=== PATIENT | male | born 1995 | race Caucasian/White ===

== ENCOUNTER 2017-01-10 19:35 | Emergency (ER) | payer OTHER ==
[2017-01-10 19:41] VITALS: RESP 16; TEMP 97.3
--- NOTE | 2017-01-10 20:00 | EDPHY ---
H & P Stated Complaint: throat tightness Time Seen by Provider: 01/10/17 20:00 HPI/ROS: HPI: This is a 21-year-old male who presents with Chief Complaint: Throat tightness Location: Throat Quality: Tightness Duration: Prior to arrival Signs and Symptoms: No difficulty swallowing, no wheezing, no shortness of breath, no chest pain, no cardiac awareness, no radiculopathy Timing: Sudden Severity: Moderate Context: Patient reports he was sitting on the computer participating in a group project when all of a sudden he felt his throat become tight, it was constant and lasted approximately 15-30 minutes. He was still able to talk and swallow without difficulty. Denies any fever/sore throat/chest pain/shortness of breath. He has not had any recent long distance travel. Denies any recreational drug use. Denies anxiety. Denies eating any new foods or any allergies. Denies indigestion or sensitivity to fatty or fried foods. Patient did have a central heat on today. He feels like his throat is dry and has a lump in it but is still able to swallow. The only thing he had to eat prior to arrival was pizza. Modifying Factors: None Comment: ROS: see HPI Constitutional: No fever, no chills, no weight loss Eyes: No blurred vision Respiratory: No shortness of breath, no cough Cardiovascular: No chest pain Gastrointestinal: No nausea, no vomiting, no diarrhea Genitourinary: No dysuria Extremities: No myalgias Neurologic: No weakness, no numbness Skin: No rashes Hematologic: No bruising, no bleeding MEDICAL/SURGICAL/SOCIAL HISTORY: Medical history: Attention deficit hyperactivity disorder, depression Surgical history: Tympanostomy tubes Social history: Student CONSTITUTIONAL: Slightly anxious young adult white male, awake and alert, no obvious distress HEENT: Atraumatic and normocephalic, PERRL, EOMI. Tympanic membranes clear. Oropharynx clear, no exudate and moist pink mucosa. Airway patent. No lymphadenopathy. No meningismus. Cardiovascular: Normal S1/S2, regular rate, regular rhythm, without murmur rub or gallop. PULMONARY/CHEST: Symmetrical and nontender. Clear to auscultation bilaterally. Good air movement. No accessory muscle usage. ABDOMEN: Soft, nondistended, nontender, no rebound, no guarding, no peritoneal signs, no masses or organomegaly. No CVAT. EXTREMITIES: 2/2 pulses, strength 5/5, no deformities, no clubbing, no cyanosis or edema. NEUROLOGICAL: no focal neuro deficits. GCS 15. SKIN: Warm and dry, no erythema. no rash. Good capillary refill. Source: Patient Exam Limitations: No limitations - Personal History Current Tetanus/Diphtheria Vaccine: Yes Current Tetanus Diphtheria and Acellular Pertussis (TDAP): Yes - Medical/Surgical History Hx Asthma: No Hx Chronic Respiratory Disease: No Hx Diabetes: No Hx Cardiac Disease: No Hx Renal Disease: No Hx Cirrhosis: No Hx Alcoholism: No Hx HIV/AIDS: No Hx Splenectomy or Spleen Trauma: No Other PMH: addhd/depression/ear tubes - Social History Smoking Status: Never smoked Constitutional: Initial Vital Signs Temperature (C) 36.3 C 01/10/17 19:38 Heart Rate 99 01/10/17 19:38 Respiratory Rate 16 01/10/17 19:38 Blood Pressure 138/69 H 01/10/17 19:38 O2 Sat (%) 99 01/10/17 19:38 O2 Delivery Mode Room Air Allergies/Adverse Reactions: Penicillins Allergy (Verified 01/10/17 19:41) Home Medications: Medication Instructions Recorded Caffeine 07/03/14 Supplements 07/03/14 Wellbutrin Sr 10/03/15 Medical Decision Making - Diagnostics Imaging Results: Imaging Impressions Chest X-Ray 01/10/17 20:16 Impression: Normal chest x-ray. Procedures: 12 lead EKG: Indication: Throat tightness Rhythm: Normal sinus rhythm [place]: Normal Intervals: Normal QRS: Normal ST segments: Normal INTERPRETATION: Normal EKG The 12 lead EKG was interpreted by myself and with attending. ED Course/Re-evaluation: EKG, labs, chest x-ray obtained Patient given IV Benadryl with complete resolution of symptoms EKG shows no acute ischemic changes No signs of anaphylaxis/airway compromise/acute coronary syndrome/pulmonary embolism/pneumonia Chest x-ray my read shows no acute opacity/effusion/pneumothorax Labs reviewed and show increased BUN and creatinine that is consistent with mild dehydration. Reassessed patient who reports that his throat tightness has since resolved. We discussed his creatinine being 1.4 and he reports that he hardly drink any water today. Per nurse he has drank approximately 4 glasses of ice water while in the ER. Differential Diagnosis: Differential diagnosis includes but is not limited to allergic reaction, pulmonary embolism, atypical chest pain, pharyngitis. - Data Points Laboratory Results: Laboratory Results 01/10/17 20:30 01/10/17 20:30 01/10/17 01/10/17 01/10/17 20:30 20:30 20:30 WBC 5.15 10^3/uL 10^3/uL (3.80-9.50) RBC 5.12 10^6/uL 10^6/uL (4.40-6.38) Hgb 16.5 g/dL g/dL (13.7-17.5) Hct 45.3 % % (40.0-51.0) MCV 88.5 fL fL (81.5-99.8) MCH 32.2 pg pg (27.9-34.1) MCHC 36.4 g/dL g/dL (32.4-36.7) RDW 12.5 % % (11.5-15.2) Plt Count 163 10^3/uL 10^3/uL (150-400) MPV 10.6 fL fL (8.7-11.7) Neut % (Auto) 45.2 % % (39.3-74.2) Lymph % (Auto) 40.2 % % (15.0-45.0) Mccormick % (Auto) 11.7 % % (4.5-13.0) Eos % (Auto) 1.9 % % (0.6-7.6) Baso % (Auto) 0.8 % % (0.3-1.7) Nucleat RBC Rel Count 0.0 % % (0.0-0.2) Absolute Neuts (auto) 2.33 10^3/uL 10^3/uL (1.70-6.50) Absolute Lymphs (auto) 2.07 10^3/uL 10^3/uL (1.00-3.00) Absolute Monos (auto) 0.60 10^3/uL 10^3/uL (0.30-0.80) Absolute Eos (auto) 0.10 10^3/uL 10^3/uL (0.03-0.40) Absolute Basos (auto) 0.04 10^3/uL 10^3/uL (0.02-0.10) Absolute Nucleated RBC 0.00 10^3/uL 10^3/uL (0-0.01) Immature Gran % 0.2 % % (0.0-1.1) Immature Gran # 0.01 10^3/uL 10^3/uL (0.00-0.10) D-Dimer < 0.27 ug/mLFEU ug/mLFEU (0.00-0.50) Sodium 143 mEq/L mEq/L (134-144) Potassium 4.1 mEq/L mEq/L (3.5-5.2) Chloride 104 mEq/L mEq/L (97-110) Carbon Dioxide 26 mEq/l mEq/l (22-31) Anion Gap 13 mEq/L mEq/L (8-16) BUN 24 mg/dL H mg/dL (7-23) Creatinine 1.5 mg/dL H mg/dL (0.7-1.3) Estimated GFR 59 Glucose 80 mg/dL mg/dL (70-100) Calcium 9.7 mg/dL mg/dL (8.5-10.4) Troponin I < 0.012 ng/mL ng/mL (0.000-0.034) Medications Given: Discontinued Medications Diphenhydramine HCl (Benadryl Injection) 25 mg IVP EDNOW ONE Stop: 01/10/17 20:17 Last Admin: 01/10/17 20:28 Dose: 25 mg Departure - Departure Disposition: Home, Routine, Self-Care Clinical Impression: Throat tightness Condition: Good Instructions: Chest Pain (ED) Additional Instructions: Your chest x-ray today was unremarkable. Your labs show that you are mildly dehydrated. Please follow-up with your primary care provider in 3-5 days for repeat evaluation. Please increase her fluid intake a monitor your apartment for dryness as you have central heat. Referrals: Shashi Koch MD [Primary Care Provider] - As per Instructions
[2017-01-10 20:40] LABS: PLATELET COUNT 163 10^3/uL (150-400)
--- NOTE | 2017-01-10 20:56 | CPEKG ---
Heart Rate: 66 RR Interval: 909 P-R Interval: 164 QRSD Interval: 88 QT Interval: 376 QTC Interval: 394 P He[place]: 52 QRS [place]ell: 52 T Wave Heiskell: 37 EKG Severity - NORMAL ECG - EKG Impression: SINUS RHYTHM Electronically Signed By: Woo Quintana 10-Jan-2017 22:52:50
[2017-01-10 21:50] VITALS: BP 130/70; PULSE 98; O2SAT 98
== END 2017-01-10 21:49 | disposition home or self-care (01) ==
DX: R09.89 Other specified symptoms and signs involving the circulatory and respiratory systems (principal)
CPT/HCPCS: 96374; J1200